=== PATIENT | male | born 1950 | race Caucasian/White ===

== ENCOUNTER 2021-11-15 20:35 | Inpatient (IN) | payer OTHER, MEDICARE ==
[~2021-11-15] VITALS: Ht 182.9 cm; Wt 83.9 kg
[2021-11-15 20:48] VITALS: BP 128/86
[2021-11-15] MEDS ORDERED: MIRA50TA PO (21:43)
[2021-11-15] MEDS ORDERED: ZOLP5TAB8 PO (21:43)
[2021-11-15] MEDS ORDERED: AMLO10TA59 PO (21:43)
[2021-11-15] MEDS ORDERED: PANT40TA49 PO (21:43)
[2021-11-15] MEDS ORDERED: HEPA500034 SQ (21:43)
[2021-11-15] MEDS ORDERED: ROPI0.5T4 PO (21:43)
[2021-11-15] MEDS ORDERED: FOLI1TAB94 PO (21:43)
[2021-11-15] MEDS ORDERED: METO25TA6 PO (21:43)
[2021-11-15] MEDS ORDERED: DIGO250T PO (21:43)
[2021-11-15] MEDS ORDERED: ATOR80TA PO (21:43)
[2021-11-15] MEDS ORDERED: ASPI81TA31 PO (21:43)
[2021-11-15] MEDS ORDERED: CLOP75TA33 PO (21:43)
[2021-11-15] MEDS ORDERED: DEXL60CA3 PO (21:43)
[2021-11-15] MEDS ORDERED: ZOLPIDEM 5 MG TABLET PO PRN (22:00)
[2021-11-15] MEDS ORDERED: REMEDY ESSENTIAL ZINC PASTE 113 GM TP PRN (22:00)
[2021-11-16] MEDS: ropiniROLE 0.5 MG TABLET PO SCH ×2 (00:07→20:35)
--- NOTE | 2021-11-16 03:50 | NUR ---
Received a 71 yr old male from [facility] with an admitting diagnosis of Acute ischemic left MCA stroke. Patient AAOx2-3 was able to make needs known. Patient aphasic.VSS. Needs attended. Skin intact. Voiding well in the urinal. Patient Cymro, but was able to communicate in small sentences and responds by nodding. Hx of HTN, pacemaker,COPD. Voiding well in the urinal. Fall precautions maintained. Call olmedo within reach.
[2021-11-16 04:26] VITALS: BP 95/61
[2021-11-16] MEDS: PANTOPRAZOLE SODIUM 40 MG TABLET.DR PO SCH (06:36)
[2021-11-16 06:47] LABS: HEMATOCRIT 43.6 % (36.7-47.1); MEAN CORPUSCULAR HEMOGLOBIN 28.3 uug (23.8-33.4); MEAN CORPUSCULAR VOLUME 86.6 fL (73.0-96.2); PLATELET COUNT (AUTO) 170 K/uL (152-348)
[2021-11-16 07:11] LABS: DIGOXIN 0.3 ng/mL (0.9-2.0)
[2021-11-16 07:47] LABS: THYROID STIMULATING HORMONE 1.845 mIU/mL (0.358-3.740)
[2021-11-16 07:52] LABS: BILIRUBIN,TOTAL 0.4 mg/dL (0.2-1.0); CREATININE 0.9 mg/dL (0.6-1.3); MAGNESIUM 2.1 mg/dL (1.8-2.4); PHOSPHOROUS 3.9 mg/dL (2.5-4.9); POTASSIUM 4.3 mmol/L (3.5-5.1)
[2021-11-16 08:00] VITALS: BP 109/68
[2021-11-16] MEDS ORDERED: METOPROLOL TARTRATE 25 MG TABLET PO SCH (09:00)
[2021-11-16] MEDS ORDERED: DIGOXIN 250 MCG TABLET PO SCH (09:00)
[2021-11-16] MEDS ORDERED: Mirabegron (Myrbetriq) 50 MG) PO SCH (09:00)
--- NOTE | 2021-11-16 09:00 | NUR ---
Pt received awake in his room. Pt is A/Ox 2-3. Pt is able to ambulate with a walker, but gait is unsteady. Pt has difficulty expressing himself and has episodes of becoming frustrated. pt was compliant with his medications. Safety measures in place. Pt denies pain.
[2021-11-16] MEDS: ASPIRIN 81 MG TAB.CHEW PO SCH (10:36)
[2021-11-16] MEDS: FOLIC ACID 1 MG TABLET PO SCH (10:36)
[2021-11-16] MEDS: CLOPIDOGREL 75 MG TABLET PO SCH (10:49)
[2021-11-16] MEDS: AMLODIPINE 10 MG TABLET PO SCH (10:55)
[2021-11-16 11:00] VITALS: BP 135/84
[2021-11-16] MEDS: DIGOXIN 125 MCG TABLET PO SCH (14:07)
[2021-11-16 16:00] VITALS: BP 114/68
--- NOTE | 2021-11-16 18:30 | NUR ---
Spoke with patient's daughter, Ros, regarding home med Myrbetriq. Per daughter, a family member will bring all patient's home medications tomorrow.
--- NOTE | 2021-11-16 19:30 | NUR ---
Received patient sleeping in bed. Easily aroused by name and light touch. AAOX2-3, Italian speaking but understands Luxembourgish. Responsive but appears to be aphasic. Patient shows no signs of distress. Safety measures initiated. Call light button and frequently used items within reach. Will continue to monitor
[2021-11-16 20:00] VITALS: BP 110/57
[2021-11-16] MEDS: ATORVASTATIN 40 MG TABLET PO SCH (20:35)
[2021-11-17 04:00] VITALS: BP 114/76
[2021-11-17] MEDS: PANTOPRAZOLE SODIUM 40 MG TABLET.DR PO SCH (06:58)
--- NOTE | 2021-11-17 07:07 | NUR ---
Patient slept through the night with no complaints. No acute distress noted at this time. Patient compliant with medication regimen. Safety measures maintained. Will endorse to dayshift.
[2021-11-17 07:57] VITALS: BP 114/73
[2021-11-17] MEDS: AMLODIPINE 10 MG TABLET PO SCH (07:59)
[2021-11-17] MEDS: CLOPIDOGREL 75 MG TABLET PO SCH (07:59)
[2021-11-17] MEDS: ASPIRIN 81 MG TAB.CHEW PO SCH (07:59)
[2021-11-17] MEDS: FOLIC ACID 1 MG TABLET PO SCH (07:59)
[2021-11-17] MEDS ORDERED: LORAZEPAM 1 MG TABLET PO PRN (08:45)
[2021-11-17] MEDS: DIGOXIN 125 MCG TABLET PO SCH (12:13)
[2021-11-17 15:37] VITALS: BP 128/79
[2021-11-17 20:00] VITALS: BP 104/61
[2021-11-17] MEDS: ropiniROLE 0.5 MG TABLET PO SCH (20:44)
[2021-11-17] MEDS: ATORVASTATIN 40 MG TABLET PO SCH (20:44)
[2021-11-18 04:00] VITALS: BP 103/60
[2021-11-18] MEDS: PANTOPRAZOLE SODIUM 40 MG TABLET.DR PO SCH (06:36)
--- NOTE | 2021-11-18 06:43 | NUR ---
Pt slept through the night. On room air saturating at 99%. No signs of acute distress noted. Able to take medications whole. Pt has difficulty speaking, able to verbalize some words and make needs known. No urine output, became agitated when asking for urine. Educated pt importance of urine output, continued with bladder scan and pt became hostile. Urinal and call light within reach. Safety measures maintained. Will endorse to am shift.
[2021-11-18 07:47] VITALS: BP 119/77
[2021-11-18] MEDS: AMLODIPINE 10 MG TABLET PO SCH (08:06)
[2021-11-18] MEDS: ASPIRIN 81 MG TAB.CHEW PO SCH (08:06)
[2021-11-18] MEDS: CLOPIDOGREL 75 MG TABLET PO SCH (08:06)
[2021-11-18] MEDS: FOLIC ACID 1 MG TABLET PO SCH (08:06)
--- NOTE | 2021-11-18 11:13 | NUR ---
INDIVIDUALIZED PLAN OF CARE
[2021-11-18 12:00] VITALS: BP 111/68
[2021-11-18] MEDS: DIGOXIN 125 MCG TABLET PO SCH (12:12)
--- NOTE | 2021-11-18 13:51 | NUR ---
INDIVIDUALIZED PLAN OF CARE
[2021-11-18 16:00] VITALS: BP 117/69
[2021-11-18 20:00] VITALS: BP 115/74
[2021-11-18] MEDS: ropiniROLE 0.5 MG TABLET PO SCH (20:12)
[2021-11-18] MEDS: ATORVASTATIN 40 MG TABLET PO SCH (20:13)
[2021-11-19 04:00] VITALS: BP 120/63
[2021-11-19] MEDS: PANTOPRAZOLE SODIUM 40 MG TABLET.DR PO SCH (06:35)
[2021-11-19 08:01] VITALS: BP 122/78
[2021-11-19] MEDS: FOLIC ACID 1 MG TABLET PO SCH (09:20)
[2021-11-19] MEDS: ASPIRIN 81 MG TAB.CHEW PO SCH (09:20)
[2021-11-19] MEDS: CLOPIDOGREL 75 MG TABLET PO SCH (09:20)
[2021-11-19] MEDS: ENSURE ENLIVE (VAN) 240 ML LIQUID PO SCH (09:20)
[2021-11-19] MEDS: AMLODIPINE 10 MG TABLET PO SCH (09:21)
[2021-11-19 12:00] VITALS: BP 128/74
[2021-11-19] MEDS: DIGOXIN 125 MCG TABLET PO SCH (12:24)
[2021-11-19 16:00] VITALS: BP 119/75
[2021-11-19] MEDS: ATORVASTATIN 40 MG TABLET PO SCH (20:33)
[2021-11-19] MEDS: ropiniROLE 0.5 MG TABLET PO SCH (20:33)
[2021-11-19 20:47] VITALS: BP_SYST 123; BP_SYST 126; BP_DIAS 81; BP_DIAS 85
[2021-11-20 05:39] VITALS: BP 96/60
--- NOTE | 2021-11-20 05:56 | NUR ---
PATIENT SLEPT WELL. NO RESP. DISTRESS NOTED. CALL LIGHT IN REACH. WILL CONTINUE TO MONITOR AND ASSESS.
[2021-11-20] MEDS: PANTOPRAZOLE SODIUM 40 MG TABLET.DR PO SCH (06:42)
[2021-11-20 07:36] VITALS: BP 107/72
[2021-11-20] MEDS: AMLODIPINE 10 MG TABLET PO SCH (08:33)
[2021-11-20] MEDS: ASPIRIN 81 MG TAB.CHEW PO SCH (08:33)
[2021-11-20] MEDS: FOLIC ACID 1 MG TABLET PO SCH (08:33)
[2021-11-20] MEDS: CLOPIDOGREL 75 MG TABLET PO SCH (08:33)
[2021-11-20] MEDS: ENSURE ENLIVE (VAN) 240 ML LIQUID PO SCH (08:35)
[2021-11-20 12:00] VITALS: BP 99/64
[2021-11-20] MEDS: DIGOXIN 125 MCG TABLET PO SCH (12:36)
[2021-11-20 16:00] VITALS: BP 129/74
--- NOTE | 2021-11-20 18:41 | NUR ---
PATIENT REMAINED STABLE DURING THE SHIFT. DENIES PAIN/DISCOMFORT. SAFETY MEASURES MAINTAINED. KEPT CALL LIGHT WITHIN REACH. ALL NEEDS ATTENDED, DUE MEDS GIVEN. WILL ENDORSE TO THE NEXT SHIFT FOR CONTINUITY OF CARE.
[2021-11-20 20:04] VITALS: BP 121/80
[2021-11-20] MEDS: ropiniROLE 0.5 MG TABLET PO SCH (20:12)
[2021-11-20] MEDS: ATORVASTATIN 40 MG TABLET PO SCH (20:12)
[2021-11-21 04:09] VITALS: BP 120/87
[2021-11-21] MEDS: PANTOPRAZOLE SODIUM 40 MG TABLET.DR PO SCH (06:32)
[2021-11-21] MEDS: CLOPIDOGREL 75 MG TABLET PO SCH (08:54)
[2021-11-21] MEDS: ASPIRIN 81 MG TAB.CHEW PO SCH (08:54)
[2021-11-21] MEDS: ENSURE ENLIVE (VAN) 240 ML LIQUID PO SCH (08:57)
[2021-11-21] MEDS: FOLIC ACID 1 MG TABLET PO SCH (08:57)
[2021-11-21] MEDS: AMLODIPINE 10 MG TABLET PO SCH (08:57)
[2021-11-21] MEDS: DIGOXIN 125 MCG TABLET PO SCH (13:18)
--- NOTE | 2021-11-21 18:34 | NUR ---
PATIENT REMAINED STABLE DURING THE SHIFT. SAFETY MEASURES MAINTAINED. DENIES PAIN/DISCOMFORT. KEPT CALL LIGHT WITHIN REACH. ALL NEEDS ATTENDED, DUE MEDS GIVEN. WILL ENDORSE TO THE NEXT SHIFT FOR CONTINUITY OF CARE.
[2021-11-21 20:00] VITALS: BP 144/75
[2021-11-21] MEDS: ATORVASTATIN 40 MG TABLET PO SCH (20:32)
[2021-11-21] MEDS: ropiniROLE 0.5 MG TABLET PO SCH (20:32)
[2021-11-22 04:00] VITALS: BP 101/57
[2021-11-22] MEDS: PANTOPRAZOLE SODIUM 40 MG TABLET.DR PO SCH (06:32)
--- NOTE | 2021-11-22 06:39 | NUR ---
REMAINED STABLE DURING THE SHIFT. NO DISTRESS IDENTIFIED. PRN PAIN MED GIVEN ORDERED. ALL NEEDS ATTENDED. KEPT CALL LIGHT WITHIN REACH. SAFETY MEASURES MAINTAINED. KEPT COMFORTABLE. WILL ENDORSE TO THE NEXT SHIFT FOR CONTINUITY OF CARE.
--- NOTE | 2021-11-22 07:57 | NUR ---
Received PT awake in his room. Pt is A/Ox 2-3. Pt is able to ambulate with a walker, but gait is unsteady. Pt has difficulty expressing himself Central African speaking with some Sami. pt is compliant with his medications. Safety measures in place. Pt denies pain.
[2021-11-22 08:14] VITALS: BP 113/76
[2021-11-22] MEDS: ASPIRIN 81 MG TAB.CHEW PO SCH (09:00)
[2021-11-22] MEDS: FOLIC ACID 1 MG TABLET PO SCH (09:00)
[2021-11-22] MEDS: CLOPIDOGREL 75 MG TABLET PO SCH (09:00)
[2021-11-22] MEDS: AMLODIPINE 10 MG TABLET PO SCH (09:01)
[2021-11-22] MEDS: ENSURE ENLIVE (VAN) 240 ML LIQUID PO SCH (09:02)
[2021-11-22] MEDS: DIGOXIN 125 MCG TABLET PO SCH (12:34)
[2021-11-22 15:11] VITALS: BP 128/72
--- NOTE | 2021-11-22 15:31 | NUR ---
PT was discharge home he left in stable condition,accompanied pt to the front lobby pt ambulated with FWW . All discharge instructions with assist of ST for translation ,and belonging given to PT ID band was removed pt left in [employer] ride
--- NOTE | 2021-12-01 10:48 | NUR ---
INTERDISCIPLINARY TEAM CONFERENCE *THIS WAS DONE AND OBSERVED ON 11/16/21 13:00*
== END 2021-11-22 14:25 | disposition home health service (06) | DRG 58 ==
PROVIDERS: ADMIT Physical Medicine & Rehabilitation Pain Medicine; ATTEND Physical Medicine & Rehabilitation Pain Medicine
DX: I69.398 Other sequelae of cerebral infarction (principal); G93.49 Other encephalopathy; I27.20 Pulmonary hypertension, unspecified; D68.59 Other primary thrombophilia; I69.320 Aphasia following cerebral infarction; G20 Parkinson's disease; E78.5 Hyperlipidemia, unspecified; J44.9 Chronic obstructive pulmonary disease, unspecified; Z95.0 Presence of cardiac pacemaker; I25.10 Atherosclerotic heart disease of native coronary artery without angina pectoris; R26.89 Other abnormalities of gait and mobility; K21.9 Gastro-esophageal reflux disease without esophagitis; F17.210 Nicotine dependence, cigarettes, uncomplicated; R53.1 Weakness; I11.0 Hypertensive heart disease with heart failure; I48.91 Unspecified atrial fibrillation; I50.42 Chronic combined systolic (congestive) and diastolic (congestive) heart failure; F39 Unspecified mood [affective] disorder; I34.0 Nonrheumatic mitral (valve) insufficiency
CPT/HCPCS: 36415; 70030-TC; 71045; 83550; 83735; 84100; 84443; 85025; 93005; 97161; 97535-GO-CO; A4663